=== PATIENT | female | born 1955 | race Caucasian/White ===

== ENCOUNTER 2016-05-26 19:09 | Inpatient (IN) | payer MEDICAID ==
[~2016-05-26] VITALS: Ht 157.5 cm; Wt 90.7 kg
[2016-05-26 20:20] LABS: CALCIUM 9.3 mg/dL (8.5-10.1); CARBON DIOXIDE 38.8 mmol/L (21-32); CREATININE SERUM 1.2 mg/dL (0.6-1.0); POTASSIUM SERUM 3.5 mmol/L (3.5-5.1)
[2016-05-26 20:32] LABS: ALBUMIN 3.4 g/dL (3.4-5.0); BILIRUBIN TOTAL 0.3 mg/dL (0.20-1.00); T4(THYROXINE) 9.7 ug/dL (4.7-13.3)
[2016-05-26 20:33] LABS: TOTAL PROTEIN, SERUM 8.4 g/dL (6.4-8.2)
[2016-05-26 22:08] LABS: PLATELET COUNT 212 x10^3mcL (130-400)
[2016-05-26 22:18] LABS: BASOPHIL % 0 % (0-2); RED CELL DISTRIBUTION WIDTH 15.3 % (11.5-14.5)
[2016-05-26 22:26] LABS: MAGNESIUM 2.3 mg/dL (1.8-2.4)
[2016-05-26 22:35] LABS: UA SPECIFIC GRAVITY >=1.030 (1.005-1.035); microscopic required? YES; urine erythrocyte NEGATIVE (NEGATIVE)
[2016-05-26 22:35] LABS: CHOLESTEROL/HDL RATIO 2.6
[2016-05-26 22:54] LABS: AMPHETAMINE QUAL UR NONE DETECTED (NEG <=1000)
[2016-05-27] VITALS (7 sets, daily range): BP systolic 107–127; BP diastolic 61–83
[2016-05-27] MEDS ORDERED: HYDROXYZINE PO (00:33)
[2016-05-27] MEDS ORDERED: SIMVASTATIN20 M1 PO (00:33)
[2016-05-27] MEDS ORDERED: RANITIDINE HYD150 M2 PO (00:34)
[2016-05-27] MEDS ORDERED: HYDROCHLOROTHIA50 MG PO (00:36)
[2016-05-27] MEDS ORDERED: NOR5 PO (00:36)
[2016-05-27] MEDS ORDERED: FUROSEMIDE20 MG PO (00:37)
[2016-05-27 07:01] LABS: BASOPHIL % 0.4 % (0-2); PLATELET COUNT 186 x10^3mcL (130-400)
[2016-05-27 07:33] LABS: RED CELL DISTRIBUTION WIDTH 15.5 % (11.5-14.5)
[2016-05-27 07:45] LABS: CARBON DIOXIDE 39.2 mmol/L (21-32); CHLORIDE SERUM 95 mmol/L (98-107); CREATININE SERUM 0.9 mg/dL (0.6-1.0); GFR1 > 60 mL/min; GLUCOSE SERUM 115 mg/dL (74-106); POTASSIUM SERUM 4.2 mmol/L (3.5-5.1); SODIUM SERUM 135 mmol/L (136-145)
[2016-05-28 06:04] LABS: CALCIUM 9.7 mg/dL (8.5-10.1); POTASSIUM SERUM 4.6 mmol/L (3.5-5.1)
[2016-05-28 06:05] LABS: CARBON DIOXIDE 43.3 mmol/L (21-32)
[2016-05-28 06:16] VITALS: BP 126/67
[2016-05-28 07:21] LABS: BASOPHIL % 0.1 % (0-2); PLATELET COUNT 212 x10^3mcL (130-400)
[2016-05-28 07:26] LABS: RED CELL DISTRIBUTION WIDTH 15.6 % (11.5-14.5)
[2016-05-28 08:35] VITALS: BP 132/66; BP 99/65
[2016-05-28 12:22] VITALS: BP 134/63
[2016-05-28 18:01] VITALS: BP 112/66
[2016-05-28 21:29] VITALS: BP 127/74
[2016-05-29 06:22] VITALS: BP 109/59
[2016-05-29 06:43] LABS: CALCIUM 9.1 mg/dL (8.5-10.1); CHLORIDE SERUM 96 mmol/L (98-107); CREATININE SERUM 0.9 mg/dL (0.6-1.0); GFR1 > 60 mL/min; GLUCOSE SERUM 85 mg/dL (74-106); POTASSIUM SERUM 4.4 mmol/L (3.5-5.1); SODIUM SERUM 139 mmol/L (136-145)
[2016-05-29 07:17] LABS: CARBON DIOXIDE > 45.0 mmol/L (21-32)
[2016-05-29 07:25] LABS: BASOPHIL % 0.3 % (0-2); PLATELET COUNT 215 x10^3mcL (130-400)
[2016-05-29 08:56] VITALS: BP 114/60
[2016-05-29 17:11] VITALS: BP 101/58
[2016-05-29 21:33] VITALS: BP 108/64
[2016-05-30 05:26] VITALS: BP 114/59
[2016-05-30 06:13] LABS: BASOPHIL % 0.2 % (0-2); PLATELET COUNT 217 x10^3mcL (130-400)
[2016-05-30 06:30] LABS: CHLORIDE SERUM 96 mmol/L (98-107); CREATININE SERUM 0.9 mg/dL (0.6-1.0); GFR1 > 60 mL/min; GLUCOSE SERUM 83 mg/dL (74-106); POTASSIUM SERUM 4.3 mmol/L (3.5-5.1); SODIUM SERUM 141 mmol/L (136-145)
[2016-05-30 06:41] LABS: RED CELL DISTRIBUTION WIDTH 15.3 % (11.5-14.5)
[2016-05-30 07:20] LABS: CARBON DIOXIDE > 45.0 mmol/L (21-32)
[2016-05-30 10:48] VITALS: BP 135/75
[2016-05-30] MEDS ORDERED: CLEOCIN HCL300 MG PO (14:21)
[2016-05-30] MEDS ORDERED: LEVAQUIN750 MG PO (14:21)
[2016-05-30] MEDS ORDERED: LAC PO (14:21)
[2016-05-30 14:33] VITALS: Ht 157.5 cm; Wt 90.7 kg
[2016-05-30 16:20] VITALS: BP 135/75
== END 2016-05-30 19:26 | disposition home health service (06) | DRG 140 ==
LOC: ED 19:09 → MU 21:49 → DU 21:49 → MU 05-28 06:41
PROVIDERS: Emergency Medicine; Family Medicine; ADMIT Family Medicine
DX: J44.1 Chronic obstructive pulmonary disease with (acute) exacerbation (principal); J96.21 Acute and chronic respiratory failure with hypoxia; N17.0 Acute kidney failure with tubular necrosis; D75.1 Secondary polycythemia; I87.2 Venous insufficiency (chronic) (peripheral); I10 Essential (primary) hypertension; R73.03 Prediabetes; L30.4 Erythema intertrigo; E78.5 Hyperlipidemia, unspecified; F17.200 Nicotine dependence, unspecified, uncomplicated; E66.9 Obesity, unspecified; Z68.36 Body mass index [BMI] 36.0-36.9, adult; Z99.81 Dependence on supplemental oxygen
CPT/HCPCS: 36600; 80307; 83880; 97116-GP; 97530-GP; C9113; J1940; J1956; J2920; J2930; J3490; J7030; J7613; J7620; J7644; Q0092

== ENCOUNTER 2018-06-25 18:22 | Inpatient (IN) | payer OTHER, MEDICAID ==
[~2018-06-25] VITALS: Ht 165.1 cm; Wt 84.5 kg
[~2018-06-25 18:22] MED LIST: CLEOCIN HCL300 MG PO; FUROSEMIDE20 MG PO; HYDROCHLOROTHIA50 MG PO; HYDROXYZINE PO; LAC PO; LEVAQUIN750 MG PO; NOR5 PO; RANITIDINE HYD150 M2 PO; SIMVASTATIN20 M1 PO
--- NOTE | 2018-06-25 18:49 | NUR ---
AT BEDSIDE FOR MSE.
--- NOTE | 2018-06-25 18:50 | NUR ---
PT PRESENTS TO ED WITH C/O SOB. PER DAUGHTER PT HAS BEEN HAVING DIFFICULTY BREATHING SINCE YESTERDAY AND TODAY IT HAS GOTTEN WORSE. PT SPEAKING WITH PAUSES BETWEEN WORDS AND SITTING IN A TRIPOD POSITION. PT O2 SAT IN 50'S PRIOR TO O2 ADMINISTRATION. PER DAUGHTER PT HAS NOT BEEN COMPLIANT WIH USING HOME O2, AND STS "ITS DIFFICULT BECAUSE WE ARE LIVING IN A CAR OR IN MOTELS RIGHT NOW". PT AAOX4, SITTING UP ON GURNEY, ON FULL MONITOR, DAUGHTER AT BEDSIDE.
--- NOTE | 2018-06-25 19:03 | NUR ---
RT CAME TO PUT PT ON BIPAP MACHINE. PT BECAME AGGITATED AND REFUSED TO GO ON BIPAP MACHINE. PT IS CURRENTLY GETTING A BREATHIN TX. DR. ROWAN MADE AWARE.
--- NOTE | 2018-06-25 19:04 | NUR ---
DR ROWAN ORDERED BIPAP FOR PT POST ABG RESULTS, PT REFUSED BIPAP. DR ROWAN SPOKE TO PATIENT, PT CONTINUES TO REFUSE. RN AWARE.
[2018-06-25 19:06] LABS: BASOPHIL % 0.1 % (0-2); PLATELET COUNT 208 x10^3mcL (130-400)
[2018-06-25 19:07] LABS: RED CELL DISTRIBUTION WIDTH 18.3 % (11.5-14.5)
--- NOTE | 2018-06-25 19:07 | NUR ---
Pt REFUSES BIPAP.
[2018-06-25 19:15] LABS: CALCIUM 8.8 mg/dL (8.5-10.1); CARBON DIOXIDE 34.6 mmol/L (21-32); CHLORIDE SERUM 97 mmol/L (98-107); CREATININE SERUM 0.9 mg/dL (0.6-1.0); GFR1 > 60 mL/min; GLUCOSE SERUM 121 mg/dL (74-106); POTASSIUM SERUM 4.8 mmol/L (3.5-5.1); SODIUM SERUM 134 mmol/L (136-145)
[2018-06-25 19:20] LABS: ALKALINE PHOSPHATASE 111 U/L (46-116); ALT/SGPT 21 U/L (14-59); AST/SGOT 23 U/L (15-37); TOTAL PROTEIN, SERUM 7.9 g/dL (6.4-8.2)
[2018-06-25 19:22] LABS: ALBUMIN 2.8 g/dL (3.4-5.0)
--- NOTE | 2018-06-25 19:25 | NUR ---
NUBIA TX COMPLETED. Pt PLACED ON 40% VENTURI MASK PER DR. CHRISTOPHER. SPO2 87%. WILL MONITOR.
[2018-06-25 20:03] LABS: CHOLESTEROL/HDL RATIO 3.7; MAGNESIUM 1.9 mg/dL (1.8-2.4); PHOSPHOROUS 4.1 mg/dL (2.5-4.9)
--- NOTE | 2018-06-25 20:09 | NUR ---
ATTEMPTED TO RECONCILE MEDS, PT'S DAUGHTER REPORTS THAT SHE WILL CALL WITH LIST OR BRING THE MEDS TOMORROW.
[2018-06-25 20:14] LABS: FREE T4 1.23 ng/dL (0.76-1.46); FREE THYROXINE INDEX 2.6 ug/dL (1.4-4.5); T4(THYROXINE) 7.1 ug/dL (4.7-13.3)
[2018-06-25 20:34] LABS: T3 TOTAL 0.76 ng/mL
--- NOTE | 2018-06-25 20:39 | NUR ---
PT REMAINS SITTING ON SIDE OF GURNEY IN POSITION OF COMFORT. PT IS AWAKE AND ALERT, PT REMAINS ON VENTURI MASK 40%, NO INCREASED WORK OF BREATHING NOTED, NO USE OF ACCESSORY MUSCLES. WILL CONTINUE TO MONITOR. PT DENIES ANY PAIN.
--- NOTE | 2018-06-25 20:42 | NUR ---
GAVE REPORT TO BEN IN THE ICU FOR PT TRANSFER. ALL QUESTIONS AND CONCERNS ADDRESSED.
--- NOTE | 2018-06-25 20:52 | NUR ---
RECEIVED PT FROM ED VIA [facility] ACCOMPANIED BY RN AND ERT WITH PORTABLE O2 AT 10 L/MIN VIA VENTURI MASK. PT WAS ABLE TO AMBULATE FROM [facility] TO ICU BED 9. PT CAME IN DUE TO SHORTNESS OF BREATH X2 DAYS.AAOX3. DENIES HEADACHE/DIZZINESS. ABLE TO FOLLOW COMMANDS. O2 SAT= 82%. LUNG SOUNDS DIMINISHED. PT DENIES CHEST PAIN. S1,S2 SOUNDS PRESENT. HR: 90. ABDOMEN IS SOFT AND ROUND. BOWEL SOUNDS ACTIVE. VOIDS FREELY. IV SITE TO R. AC, PATENT AND INTACT. SIDE RAILS UP X 3. CALL LIGHT WITHIN REACH.
--- NOTE | 2018-06-25 21:19 | NUR ---
PATIENT 02 SATURATION 83% ON VENTURI MASK, NONREBREATHER MASK APPLIED AT 10L AT THIS TIME, PT SATING 94%, EDUCATED PATIENT REGARDING CODE STATUS, PATIENT VERBALIZES UNDERSTANDING AND WANTS TO REMAIN DNR/DNI AND BIPAP.
[2018-06-25 21:43] VITALS: BP 1113/62
--- NOTE | 2018-06-25 22:00 | NUR ---
VENTURI MASK REPLACED WITH NON-REBREATHER MASK WITH 02 AT 5 LITERS.
[2018-06-25 23:28] VITALS: BP 113/63
[2018-06-26] VITALS (7 sets, daily range): BP systolic 104–123; BP diastolic 52–85
--- NOTE | 2018-06-26 00:11 | NUR ---
PATIENT BECOMING MORE LETHARGIC, CONFUSED, ORIENTED TO SELF AND MONTH ONLY. NOTIFIED IN PATIENTS CHANGE OF CONDITION. SPOKE TO PATIENTS DAUGHTER MOY REGARDING PATIENT CHANGE OF CONDITION AND EDUCATED REGARDING BIPAP AND POSSIBLE INTUBATION IF NEEDED, PER DAUGHTER MOY, OK TO DO BIPAP AND INTUBATE IF NEEDED, DOUBLE VERIFIED WITH MYSELF AND . BIPAP ORDERS IN PLACE, CODE STATUS CHANGE AT THIS TIME. 20G IV INSERTED INTO LEFT HAND, FLUSHED WITH 10 ML NS, NO S/S OF INFILTRATION, PT TOLERATED WELL.
--- NOTE | 2018-06-26 00:23 | NUR ---
PT PLACED ON BIPAP. WILL MONITOR TO SEE IF PT'S STATUS IMPROVES.
--- NOTE | 2018-06-26 00:26 | NUR ---
RT AT BEDSIDE, PT PLACED ON BIPAP: IPAP-12, EPAP-6, RATE 14, FIO2- 50%.
--- NOTE | 2018-06-26 02:54 | NUR ---
PT HAD EPISODE OF URINARY INCONTINENCE. PT CLEANED AND LINENS CHANGED. WILL MONITOR FOR PERSISTENT INCONTINENCE.
[2018-06-26 05:15] LABS: PLATELET COUNT 200 x10^3mcL (130-400)
[2018-06-26 05:22] LABS: CALCIUM 8.9 mg/dL (8.5-10.1); CARBON DIOXIDE 34.2 mmol/L (21-32); CHLORIDE SERUM 97 mmol/L (98-107); CREATININE SERUM 0.8 mg/dL (0.6-1.0); GFR1 > 60 mL/min; GLUCOSE SERUM 124 mg/dL (74-106); POTASSIUM SERUM 5.3 mmol/L (3.5-5.1); SODIUM SERUM 134 mmol/L (136-145)
[2018-06-26 05:31] LABS: BASOPHIL % 0 % (0-2); RED CELL DISTRIBUTION WIDTH 18.1 % (11.5-14.5)
--- NOTE | 2018-06-26 05:57 | NUR ---
MADE DR. LINDSAY AWARE OF ABNORMAL LABS. POTASSIUM 5.3, SODIUM 134.
--- NOTE | 2018-06-26 06:30 | NUR ---
SPOKE TO PATIENT AGAIN ABOUT CODE STATUS, AND DESIRE TO BE INTUBATED. PT CLEARLY STATED NO. DR. LINDSAY, MYSELF, AND LAURO TANG IN THE ROOM TO WITNESS.
--- NOTE | 2018-06-26 07:25 | NUR ---
REPORT GIVEN TO LAURO JOYNER FOR CONTINUITY OF CARE. ALL QUESTIONS AND CONERNS ADDRESSED.
--- NOTE | 2018-06-26 07:35 | NUR ---
MARCO IYER: ICU DIRECTOR, [facility], AND MYSELF AT PATIENT BEDSIDE. PATIENT ALERT AND ORIENTED X 4 (PERSON, PLACE, YEAR AND SITUATION). CODE STATUS DISCUSSED INTUBATION, CHEST COMPRESSIONS, DEFIB. AND LIFE SUSTAINING MEASURES. PATIENT VERBALIZED THAT SHE DOES NOT WANT ANY HEROIC EFFORTS IN THE EVENT SHE IS NOT ABLE TO MAKE HER OWN DECISIONS. DNR FORMED OBTAINED FROM PATIENT AND PLACED IN CHART.
--- NOTE | 2018-06-26 07:45 | NUR ---
THE PATIENT WAS SLEEPING BUT AROUSABLE WITH VERBAL STIMULI AND ORIENTED TO PERSON, PLACE AND WITH SLOW SPEECH. THE PATIENT DENIED SHORTNESS OF BREATH, NAUSEA/VOMITING OR GUERRA AT THIS TIME. PATIENT WAS ON BIPAP /. IV SITES TO LFA AND LEFT HAND. TELE # 9 READS NORMAL SINUS RHYTHMS. NIELSEN CATH TO GRAVITY DRAINING YELLOW URINE. CALL LIGHT WITHIN REACH. SIDE RAILS UP X3. BED WAS AT LOWEST POSITION AND ALARM WAS ON.
--- NOTE | 2018-06-26 09:30 | NUR ---
RT ANDERSON CHANGED SWITCHED BIPAP TO OXYMIZER AT 6L/MIN FOR THE PATIENT.
--- NOTE | 2018-06-26 10:16 | NUR ---
PATIENT PROVIDED INCENTIVE SPIROMETER. PATIENT EDUCATION PROVIDED REGARDING HOW TO USE AND INDICATION. PATIENT VERBALIZED AN UNDERSTANDING AND PROVIDED RETURN DEMONSTRATION.
--- NOTE | 2018-06-26 10:29 | NUR ---
JANITORIAL MAINTENANCE WORKER WAS AT BEDSIDE FOR ECHO.
--- NOTE | 2018-06-26 11:10 | NUR ---
THE PATIENT WAS ASSISTED TO SIT IN A CHAIR. THE TABLE WAS IN FRONT OF THE PATIENT. THE PATIENT WAS ON OXYMIZER AT 6L/MIN AND O2 SAT >91%.
[2018-06-26] MEDS ORDERED: PAROXETINE HCL20 M1 PO (11:16)
--- NOTE | 2018-06-26 11:37 | NUR ---
DR LINDSAY, MYSELF AND PATIENT'S DAUGHTER BOWEN AT BEDSIDE WITH PATIENT. CODE STATUS REVIEWED WITH PATIENT AND DAUGHTER. PER PATIENT AND DAUGHTER'S AGREEMENT, PATIENT IS A MODIFIED CODE. COMPRESSIONS, DEFIB, BIPAP, AND ACLS DRUGS OKAY. PATIENT DOES NOT WANT INTUBATION.
--- NOTE | 2018-06-26 12:06 | NUR ---
JUSTIN RT AT BEDSIDE ADMINISTERING BREATHING TX. FIO2 ON OXIMIZER TITRATED FROM 6/LPM TO 4/LPM. PRIMARY RN MANAS MADE AWARE.
--- NOTE | 2018-06-26 14:22 | NUR ---
THE PATIENT WAS OFFERED A BED BATH, BUT SHE REFUSED. THE PATIENT DID NOT TO HAVE WIPES OR WASH CLOTHS TOUCH HER BODY.
--- NOTE | 2018-06-26 15:35 | NUR ---
SPOKE WITH DR BUNDY VIA TELEPHONE. PATIENT UPDATE PROVIDED. PER ABRIL RAMIREZ TO PLACE PATIENT ON NASAL CANNULA 2 LPM.
--- NOTE | 2018-06-26 16:00 | NUR ---
THE URINE SPECIMEN WAS COLLECTED FROM CATH PORT AND SENT TO LAB FOR UA AND UDS.
--- NOTE | 2018-06-26 16:09 | NUR ---
RECEIVED REPORT FROM [facility]. AWAITING PT ARRIVAL TO FLOOR.
--- NOTE | 2018-06-26 16:30 | NUR ---
REPORT WAS GIVEN TO LAURO VARNER FROM [facility] UNIT. CONCERNS WERE ADDRESSED. THE PATIENT WAS [facility] 255B VIA WHEELCHAIR IN STABLE CONDITION. ALL BELONGINGS WERE TRANSFERRED WITH THE PATIENT. THE PATIENT SAID THAT SHE WILL CALL HER DAUGHTER TO NOTIFY HER DAUGHTER OF HER TRANSFER.
--- NOTE | 2018-06-26 16:35 | NUR ---
RECEIVED PATIENT FROM ICU VIA WHEELCHAIR. PT AMBULATED ALONE TO BED AND PLACED ON O2 2L NC. NO C/O SOB AND NO DISTRESS NOTED. VITALS TAKEN (SEE EMAR). NO C/O PAIN. TWO IVS TO LT HAND AND LAC. CHART AND MEDICATION BROUGHT UP. WILL CONTINUE TO MONITOR.
[2018-06-26 16:47] LABS: microscopic required? YES; urine erythrocyte 3+ (NEGATIVE)
[2018-06-26 17:04] LABS: AMPHETAMINE QUAL UR NONE DETECTED (See below)
--- NOTE | 2018-06-26 18:56 | NUR ---
PT RESTING COMFORTABLY AT EDGE OF BED. NO DISTRESS NOTED. PT ON O2 2L NC. NO C/O SOB. IV TO LT HAND IS PATENT AND INTACT. NO REDNESS OR PAIN. IV TO LFA HAS INFILTRATED AND HAS BEEN REMOVED. TELE # [address] PT DENIES CHEST PAIN. WILL ENDORSE ALL CARE TO ONCOMING NURSE.
--- NOTE | 2018-06-26 19:45 | NUR ---
RECEIVED AWAKE IN BED, WATCHING TV. DENIES ANY PAIN/DISCOMFORT. SKIN WARMA ND DRY TO TOUCH WITH REDNESS ON BILATERAL BREAST FOLDS, DRY SCABS TO BACK, LOTION APPLIED TO BONY PROMINENCES. ON TELE #24 SHOWS NSR . ON 02 AT 2L/NC, NO S/S OFA CUTE RESPIRATORY DISTRESS. CALL LIGHT WITHIN REACH.
--- NOTE | 2018-06-26 22:00 | NUR ---
ALL DUE MEDICATIONS GIVEN AND WELL TOLERATED. NO S/S OF ASPIRATION NOTED.
--- NOTE | 2018-06-27 00:54 | NUR ---
DR. DUMONT MADE AWARE OF PATIENT IS POSITIVE FOR MRSA NARES.
--- NOTE | 2018-06-27 01:00 | NUR ---
LAB CALLED WITH MRSA CULTURE /NARES RESULT, POSITIVE FOR MRSA, DR DUMONT WAS NOTIFIED WITH NEW ORDERS NOTED .
--- NOTE | 2018-06-27 05:54 | NUR ---
PLACED ON CONTACT ISOLATION FOR MRSA OF THE NARES. KEPT CLEAN AND DRY. ALL DUE MEDICATIONS GIVEN . NO S/S OF ACUTE RESPIRATORY DISTRESS.
[2018-06-27 06:04] VITALS: BP 129/63
[2018-06-27 06:22] LABS: BASOPHIL % 0.6 % (0-2); PLATELET COUNT 215 x10^3mcL (130-400)
[2018-06-27 06:37] LABS: RED CELL DISTRIBUTION WIDTH 18.1 % (11.5-14.5)
[2018-06-27 06:39] LABS: CALCIUM 9.2 mg/dL (8.5-10.1); CARBON DIOXIDE 36.9 mmol/L (21-32); CHLORIDE SERUM 98 mmol/L (98-107); CREATININE SERUM 0.9 mg/dL (0.6-1.0); GFR1 > 60 mL/min; GLUCOSE SERUM 95 mg/dL (74-106); MAGNESIUM 2.1 mg/dL (1.8-2.4); PHOSPHOROUS 3.3 mg/dL (2.5-4.9); SODIUM SERUM 134 mmol/L (136-145)
[2018-06-27 06:48] LABS: POTASSIUM SERUM 5.7 mmol/L (3.5-5.1)
--- NOTE | 2018-06-27 07:59 | NUR ---
RECEIVED SLEEPING BUT AROUSABLE, NO ACUTE DISTRESS NOTED. NO C/O PAIN OR DISCOMFORT. VS WNL. HL IN PLACE. CALL LIGHT WITHIN REACH. WILL CONTINUE WITH PLAN OF CARE.
[2018-06-27 08:15] VITALS: Ht 165.1 cm; Wt 84.5 kg
[2018-06-27 08:37] VITALS: BP 127/64
[2018-06-27 12:00] VITALS: BP 119/54
--- NOTE | 2018-06-27 12:59 | NUR ---
INTERDRY APPLIED TO BREAST FOLDS FOR REDNESS. PT IN NO DISTRESS, NO C/O PAIN AT THIS TIME.
[2018-06-27] MEDS ORDERED: LEV500PM IV (14:03)
--- NOTE | 2018-06-27 15:25 | NUR ---
RESTING IN BED, NO DISTRESS NOTED. DENIES PAIN
[2018-06-27 16:42] VITALS: BP 127/60
--- NOTE | 2018-06-27 16:52 | NUR ---
NIELSEN CATH REMOVED, PT TOLERATED WELL. DUE TO VOID AND AWARE.
--- NOTE | 2018-06-27 18:46 | NUR ---
STILL WAITING FOR ROOM AT [facility]. PT RESTING IN BED, REMAINS IN NO DISTRESS. NO C/O PAIN OR DISCOMFORT AT THIS TIME. VOIDED X1 AFTER NIELSEN CATH DC'D, DENIES HEMATURIA OR DYSURIA. VS REMAINS WNL. CALL LIGHT WITHIN REACH. WILL BE ENDORSED TO INCOMING SHIFT.
--- NOTE | 2018-06-27 19:56 | NUR ---
PT CURRENTLY RESTING IN BED, NO ACUTE DISTRESS. A/O X4. TELE #24 SHOWING SINUS RHYTHM, DENIES CHEST PAIN. PULSES PALPABLE IN ALL EXTREMITIES, BLE TRACE EDEMA NOTED. LUNG SOUNDS DIMINISHED BILATERALLY, DENIES SOB. O2 VIA NC AT 2L. BOWEL SOUNDS ACTIVE, LAST BM 06/27/18. VOIDING WELL. GENERALIZED WEAKNESS, AMBULATORY WITH ASSIST. REDNESS TO BREAST FOLDS, INTERDRY IN PLACE. DRY SCABS TO BACK, FLOYD. IV PATENT AND INTACT. BED IN LOWEST POSITION, SIDE RAILS UP X2, CALL LIGHT WITHIN REACH. WILL CONTINUE TO MONITOR.
[2018-06-27 21:20] VITALS: BP 103/43
--- NOTE | 2018-06-28 03:19 | NUR ---
PT CURRENTLY RESTING IN BED, NO ACUTE DISTRESS. WILL CONTINUE TO MONITOR.
[2018-06-28 05:17] VITALS: BP 130/57
[2018-06-28 06:18] LABS: PLATELET COUNT 238 x10^3mcL (130-400)
--- NOTE | 2018-06-28 06:22 | NUR ---
PT SLEPT PERIODICALLY THROUGHOUT NIGHT, NO ACUTE DISTRESS. ALL NEEDS MET AND ATTENDED TO. NO SIGNIFICANT CHANGES. IV PATENT AND INTACT. BED IN LOWEST POSITION, SIDE RAILS UP X2, CALL LIGHT WITHIN REACH. WILL ENDORSE CARE TO ONCOMING NURSE.
[2018-06-28 06:43] LABS: CALCIUM 9.4 mg/dL (8.5-10.1); CHLORIDE SERUM 96 mmol/L (98-107); CREATININE SERUM 0.8 mg/dL (0.6-1.0); GFR1 > 60 mL/min; GLUCOSE SERUM 132 mg/dL (74-106); SODIUM SERUM 135 mmol/L (136-145)
[2018-06-28 06:46] LABS: BASOPHIL % 0 % (0-2); RED CELL DISTRIBUTION WIDTH 18.3 % (11.5-14.5)
[2018-06-28 07:08] LABS: POTASSIUM SERUM 5.6 mmol/L (3.5-5.1)
--- NOTE | 2018-06-28 07:34 | NUR ---
RECEIVED AWAKE AND ALERT. SITTING AT THE EDGE OF THE BED TALKING ON THE PHONE. NO ACUTE RESP. DISTRESS NOTED. NO C/O PAIN OR DISCOMFORT. CALL LIGHT WITHIN REACH. WILL CONTINUE WITH PLAN OF CARE.
[2018-06-28 08:16] VITALS: BP 126/60
[2018-06-28 09:50] VITALS: BP 126/60
[2018-06-28 12:17] VITALS: BP 131/62
--- NOTE | 2018-06-28 15:22 | NUR ---
PT WILL BE DC'D TO SN[facility] THIS PM AND AWARE. RESTING IN BED, NO DISTRESS NOTED. NO C/O PAIN AT THIS TIME.
[2018-06-28 16:29] VITALS: BP 116/60
--- NOTE | 2018-06-28 17:52 | NUR ---
ATTEMPED TO CALL REPORT TO [facility] BUT PU ON HOLD FOR LONG. ATTEMPTED FOR SECOND TIME BUT STILL UNABLE TO TALK TO SOMEONE. WILL CALL AGAIN LATER.PT RESTING IN BED. NO DISTRESS. NEW HL TO RH HAND PATENT, OLD LINE REMOVED AND SITE/CATH INTACT. NO REDNESS OR SWELLING NOTED. PT DENIES PAIN AT THIS TIME.
--- NOTE | 2018-06-28 18:13 | NUR ---
REPORT GIVEN TO MS. MUNIZ
--- NOTE | 2018-06-28 18:29 | NUR ---
PT DC'D TO [facility] IN NO ACUTE RESP. DISTRESS. AWAKE, ALERT AND ORIENTED. NO C/O PAIN OR DISCOMFORT. DC INSTRUCTIONS REVIEWED WITH PT AND PT VERBALIZED UNDERSTANDING. HL REMOVED AND NEW ONE INDERTED TO RT HAND. PATENT. VS STABLE UPON DC. PERSONAL BELONGINGS TAKEN WITH PT. REPORT GIVEN TO
== END 2018-06-28 18:27 | DRG 189 ==
LOC: ED 18:22 → IC 19:42 → DU 19:42 → IC 20:21 → DU 06-26 16:45
PROVIDERS: Emergency Medicine; ADMIT Internal Medicine
DX: J96.21 Acute and chronic respiratory failure with hypoxia (principal); N17.0 Acute kidney failure with tubular necrosis; E43 Unspecified severe protein-calorie malnutrition; J44.1 Chronic obstructive pulmonary disease with (acute) exacerbation; E87.3 Alkalosis; J96.22 Acute and chronic respiratory failure with hypercapnia; G47.33 Obstructive sleep apnea (adult) (pediatric); E86.0 Dehydration; E11.65 Type 2 diabetes mellitus with hyperglycemia; I10 Essential (primary) hypertension; Z66 Do not resuscitate; Z59.0 Homelessness; Z99.81 Dependence on supplemental oxygen; Z68.31 Body mass index [BMI] 31.0-31.9, adult; F17.210 Nicotine dependence, cigarettes, uncomplicated
CPT/HCPCS: 36600; 82962; 83880; 84439; 94150; J1644; J1956; J2920; J2930; J7613; J7620; J7644; Q0092